=== PATIENT | female | born 1985 | race Caucasian/White ===

== ENCOUNTER 2017-07-12 06:23 | Observation (INO) | payer MEDICAID, SELFPAY ==
--- NOTE | 2017-07-10 17:22 | HP.PCM_ITS ---
History and Physical Date of Admission: 07/11/17 HISTORY OF PRESENT ILLNESS' This is a 31-year-old woman, who presents with a recent flareup of hidradenitis in her right inguinal and medial thigh area. She has noticed some extension onto her right vulval area involving the genitocrural area. There has been increasing pain. She denies any fever. She denies any purulent drainage. She has been on antibiotics intermittently in the past. She is currently on Doxycycline and tolerating them. She has intermittent drainage as well. At the present time, she has increasing pain and swelling. She presents at this time for further evaluation and treatment regarding her right inguinal and medial thigh hidradenitis with extension into her right vulval area involving the mons pubis and genitocrural area. At the time of her excision hidradenitis right axillary area in 06/03, she had wound cultures that showed Proteus mirabilis, Pseudomonas aeroginosa, and Enterococcus faecalis and was treated with Cipro and Augmentin. PAST MEDICAL HISTORY: Diabetes mellitus. Gallstones. Seizures as a child. Bilateral axillary hidradenitis. PAST SURGICAL HISTORY: Cholecystectomy in 2016. Surgical preparation right axilla with excision hidradenitis (128 cm2) - 05/24/16 MEDICATIONS: Metformin, doxycycline, ibuprofen, and aspirin. ALLERGIES: None. SOCIAL HISTORY: Patient does not smoke. The patient does not drink alcohol. FAMILY HISTORY: Positive for skin cancer. Positive for diabetes mellitus. REVIEW OF SYSTEMS: GENERAL: Denies fever, fatigue, and weight loss. EARS, NOSE, AND THROAT: Denies nasal congestion. Denies sore throat. EYES: Denies eye pain. ENDOCRINE: Denies excessive thirst or urination. Has diabetes mellitus. INTEGUMENTARY: Has bilateral axillary hidradenitis. Had excision right axillary hidradenitis in 06/03. Has recent flareup of hidradenitis in her right inguinal area and medial thigh. Has some extension into the right vulval area involving the mons pubis and genitocrural area. MUSCULOSKELETAL: Denies joint pain, joint stiffness, and weakness in muscles and joints, back pain, and arthritis. NEUROLOGIC: Denies headaches. Denies poor balance. CARDIOVASCULAR: Denies chest pain. Denies shortness of breath with exertion. Denies fatigue. PSYCHIATRIC: Denies anxiety. Denies depression. RESPIRATORY: Denies chronic cough. Denies shortness of breath. GASTROINTESTINAL: Denies nausea, vomiting, diarrhea, or constipation. HEMATOLOGIC: Denies abnormal bruising. Denies bleeding. GENITOURINARY: Denies hematuria. Denies urinary frequency. PHYSICAL EXAMINATION: HEENT: Pupils equal, round, and reactive to light. Extraocular muscles intact. Throat is clear. NECK: Supple and nontender. No cervical adenopathy. LUNGS: Clear to auscultation. HEART: Regular rate and rhythm. ABDOMEN: Soft. No masses. Nontender. In the right inguinal area and medial thigh are areas of tenderness and induration and some swelling. Measures 10 cm. There is some extension into the right vulval area involving the mons pubis and genitocrural area. No purulent drainage. No fluctuance. EXTREMITIES: Full range of motion. No axillary adenopathy. No inguinal adenopathy. Axillary adenopathy was difficult to palpate because of the extent of the scarring and chronic infection. She had bilateral axillary hidradenitis. There is tenderness and induration and some swelling. No evidence of cellulitis, fluctuance, or purulent drainage at the present time. The left side is stable with no painful symptomatology. The extent of the scarring measures 8 cm . The right side shows a healed scar from previous excision hidradenitis in 06/03. NEURO: Cranial nerves II through XII grossly intact. ASSESSMENT 1. Right inguinal and medial thigh hidradenitis. 2. Vulval hidradenitis involving the mons pubis and genitocrural area. 3. Family history of skin cancer. 4. Bilateral axillary hidradenitis, s/p excision right axillary hidradenitis in 06/03. PLAN: I recommend excision of her hidradenitis in the right inguinal and medial thigh area, which we could do under general anesthesia with a surgical observation overnight stay. With the extension into the right vulval area involving the mons pubis and genitocrural area, a partial vulvectomy may be done including the deep subcutaneous tissue. We will send tissue to pathology for analysis to rule out carcinoma. We will also send tissue to microbiology for culture. Usually there is staph infection with these chronic infections. A positive culture would necessitate antibiotic therapy. Initially we will leave the wound open and proceed with postoperative wound care with a wound VAC or with daily dressing changes with a silver-type dressing. Post discharge, she will follow up at the Wound Center. If there is a plateau in the healing process, the we could consider delayed closure with skin grafting. The patient was informed of the risks and complications of the procedure including alternatives to surgery. These were discussed with the patient personally. The patient voices understanding and wishes to proceed. Some of the risks and complications were included in a form from the [employer] [place] [employer].
[2017-07-11] VITALS (13 sets, daily range): BP systolic 126–168; BP diastolic 67–112; PULSE 105–135; RESP 14–18; TEMP 36.1–37.2; O2SAT 94–98; BMI 44.9
[2017-07-11 06:59] LABS: Internal QC Validated? YES +Cl - CLEAR BKGD; Pregnancy, Urine Negative Negative
[2017-07-11 07:11] LABS: Bedside Glucose 139 mg/dL (70-110)
[2017-07-11] MEDS: Cefazolin 2 GM in 0.9% Normal Saline 100 ML IV (07:57)
--- NOTE | 2017-07-11 08:00 | HID_PTH ---
PATIENT: YUN COLLADO LOC: MS2 U#:[id number] AGE/SX: 31/F ROOM: [facility] [id number] RE07/12/[address]: Dr. Isaias Cee MD : 1985 BED: 1 DIS: 07/12/2017 SPEC #: [id number] RECD: 07/11/17 10:09 STATUS: YANETH NOEL #: [id number] CHRISTIN: 07/11/17 08:[address]: Isaias Cee DEPT: SURGICAL PATHOLOGY RECD BY: Toby Kamara ENTERED: 07/11/17 10:55 SP TYPE: Hidradenit LAMARHR DR: Dr. Carlos Sanchez, DO Tissues: Inguinal region, NOS Procedures: Surgery Specimen Level III HEADER OPERATION: Surgical preparation right inguinal and medial thigh PRE-OP DIAGNOSIS: Right inguinal and medial thigh hidradenitis; right vulvar hidradenitis involving genitocrural area; family history skin cancer; bilateral axillary hidradenitis S/P excision axillary hidradenitis in 05/2016 TISSUE SUBMITTED: Right inguinal thigh and vulva MICROSCOPIC DIAGNOSIS Skin and soft tissue of right inguinal region and vulva, excision: Consistent with hidradenitis. CARLOS:gwendolyn 07/12/17 MICROSCOPIC DESCRIPTION Slides are reviewed. GROSS DESCRIPTION Received in fixative is one container labeled with the patient's name and designated Right inguinal thigh/ vulva. The specimen consists of an irregular piece of skin with underlying tissue measuring 21 x 14 x 3 cm. No obvious skin lesion is identified. Client Success Director sections are submitted in two cassettes. / SJ:gwendolyn 07/11/17 TC:3 CPT: 66516
[2017-07-11] MEDS: Bupivacaine 0.25% 30 ML Vial (09:04)
--- NOTE | 2017-07-11 09:12 | OP.PN_ITS ---
Immediate Post-Op Note Date of Procedure: 07/11/17 Primary Surgeon/Physician: Isaias Cee long chain beamer: None Pre-Operative Diagnosis: 1. Right inguinal and medial thigh hidradenitis. 2. Right vulval hidradenitis involving the mons pubis and genitocrural area. 3. Family history of skin cancer. 4. Bilateral axillary hidradenitis, s/p excision right axillary hidradenitis in 06/03. Post-Operative Diagnosis: Same. Surgery/Procedure Performed:: 1. Surgical preparation right inguinal and medial thigh area with excision hidradenitis (437 cm2). 2. Excision hidradenitis right vulval area with partial vulvectomy including deep subcutaneous tissue (mons pubis and genitocrural area up to labia). Description of Surgical Findings:: This is a 31-year-old woman, who presents with a recent flareup of hidradenitis in her right inguinal and medial thigh area. She has noticed some extension onto her right vulval area involving the genitocrural area. There has been increasing pain. She denies any fever. She denies any purulent drainage. She has been on antibiotics intermittently in the past. She is currently on Doxycycline and tolerating them. She has intermittent drainage as well. At the present time, she has increasing pain and swelling. She presents at this time for further evaluation and treatment regarding her right inguinal and medial thigh hidradenitis with extension into her right vulval area involving the genitocrural area. At the time of her excision hidradenitis right axillary area in 06/03, she had wound cultures that showed Proteus mirabilis, Pseudomonas aeroginosa, and Enterococcus faecalis and was treated with Cipro and Augmentin. Today the patient underwent surgical preparation right inguinal and medial thigh area with excision hidradenitis (437 cm2) and excision hidradenitis right vulval area with partial vulvectomy including deep subcutaneous tissue (mons pubis and genitocrural area up to labia). Size of defect right inguinal, medial thigh, and vulval area - 19 x 23 x 3 cm. Estimated Blood Loss: 100 ml. Specimen's removed: Right inguinal, medial thigh, and vulval hidradenitis to Pathology and Microbiology. Drains: None. Type of Anesthesia:: General - Admit VTE Documentation VTE Present on Admission: No VTE Mechan Device Prophylaxis: SCD's VTE Pharm Prophylaxis ordered?: No
[2017-07-11 09:30] LABS: Bedside Glucose 168 mg/dL (70-110)
[2017-07-11] MEDS: Lactated Ringers 1,000 ML 60 ML IV ×2 (09:56→10:34)
[2017-07-11] MEDS: oxyCODONE 5 MG Tablet 10 MG PO (14:22)
[2017-07-11] MEDS: Docusate Sodium 100 MG Capsule PO ×2 (14:22→22:18)
--- NOTE | 2017-07-11 16:53 | PCM.OPRPT ---
Report of Operation Date of Procedure: 07/11/17 Pre-Operative Diagnosis: 1. Right inguinal and medial thigh hidradenitis. 2. Right vulval hidradenitis involving the mons pubis and genitocrural area. 3. Family history of skin cancer. 4. Bilateral axillary hidradenitis, s/p excision right axillary hidradenitis in 06/03. Post-Operative Diagnosis: Same. Surgery/Procedure Performed:: 1. Surgical preparation right inguinal and medial thigh area with excision hidradenitis (437 cm2). 2. Excision hidradenitis right vulval area with partial vulvectomy including deep subcutaneous tissue (mons pubis and genitocrural area up to labia). Description of Surgical Findings:: his is a 31-year-old woman, who presents with a recent flareup of hidradenitis in her right inguinal and medial thigh area. She has noticed some extension onto her right vulval area involving the genitocrural area. There has been increasing pain. She denies any fever. She denies any purulent drainage. She has been on antibiotics intermittently in the past. She is currently on Doxycycline and tolerating them. She has intermittent drainage as well. At the present time, she has increasing pain and swelling. She presents at this time for further evaluation and treatment regarding her right inguinal and medial thigh hidradenitis with extension into her right vulval area involving the genitocrural area. At the time of her excision hidradenitis right axillary area in 06/03, she had wound cultures that showed Proteus mirabilis, Pseudomonas aeroginosa, and Enterococcus faecalis and was treated with Cipro and Augmentin. The patient was informed of the risks and complications of the procedure including alternatives to surgery. These were discussed with the patient personally. The patient voices understanding and wishes to proceed. Some of the risks and complications were included in a form from the [place] [employer]. Size of defect right inguinal, medial thigh, and vulval area - 19 x 23 x 3 cm. manager electrical: None Type of Anesthesia:: General Specimen's removed: Right inguinal, medial thigh, and vulval hidradenitis to Pathology and Microbiology. Drains: None. Estimated Blood Loss (mL): 100 ml. Description of Procedure: Patient was taken to OR in supine position and was placed under general anesthesia. Her inguinal, medial thigh and vulval areas were prepped and draped in the usual fashion. SCD's were placed for DVT prophylaxis. Perioperative antibiotics were given intravenously. A ernst catheter was then placed. The area of hidradenitis was marked out in the right inguinal and medial thigh area with extension into the vulval area including the mons pubis and the genitocrural area up to the labia. Incision was made with a scalpel down through the subcutaneous tissue until the underlying muscular fascia was seen. There was fat necrosis present and indurated scarring indicative of chronic infection. No acute pus was noted. The mons pubis area were involved with fat necrosis and indurated scarring. The right inguinal and medial thigh hidradenitis areas were excised. The right vulval hidradenitis was also excised from the mons pubis and the genitocrural area up to the labia with a partial vulvectomy including deep subcutaneous tissue. Hemostasis was obtained with electrocautery. The wound was irrigated with saline. Both excisions were combined into one larger wound. The dimensions of the wound after excision was 19 x 23 x 3 cm or 437 cm2. Tissue was sent to Pathology for analysis to rule out carcinoma. Tissue was also sent to Microbiology for culture. A positive culture will necessitate antibiotic therapy. The wound was then packed with Mepitel nonadherent dressing followed by Kerlix gauze with Betadine followed by dry Kerlix gauze and ABD pads. Dressing was secured with tape and meshed panties. Patient tolerated the procedure well and was sent to PACU in satisfactory condition. She will be sent upstairs for surgical observation overnight stay in the hospital. When the VAC is approved and when she is tolerating po analgesia, then she will be discharged home. She will followup at the Wound Center. She will be sent home on antibiotics and pain medication. She will also be sent home with the ernst catheter for a couple of weeks. Grafts/Implants Used: None. - Complications None. - Admit VTE Documentation VTE Present on Admission: No VTE Mechan Device Prophylaxis: SCD's VTE Pharm Prophylaxis ordered?: No Code Visit Surgery Charges CPT - 73722 ICD-10 - L73.2, S31.103A, S31.40xA, Z80.8 23056 L73.2, S31.40xA, S31.103A, Z80.8
[2017-07-11] MEDS: Cefazolin 1 GM/50 ML BAG IV (17:23)
[2017-07-12] MEDS: Cefazolin 1 GM/50 ML BAG IV ×2 (00:24→08:38)
[2017-07-12 02:44] VITALS: BP 112/56; PULSE 85; RESP 16; TEMP 37; O2SAT 99
[2017-07-12] MEDS: Lactated Ringers 1,000 ML 60 ML IV (02:59)
[2017-07-12 06:33] LABS: Hematocrit 36.7 % (37-47); Hemoglobin 11.8 g/dl (12.0-15.0); Mean Corp Hgb Conc 32.2 g/gl (32-36); Mean Corpuscular Hgb 29.6 pg (27.0-32.0); Mean Platelet Vol. 10.3 fl (6.2-12.0); Platelet Count 343 K/mm3 (150-450); RBC Distribution Width CV 13.1 % (11.6-14.6); RBC Distribution Width SD 43.2 fl (35.1-43.9); Red Blood Count 3.99 M/mm3 (4.2-5.4); Scan Indicated on CBC? Y/N NO; White Blood Count 10.9 K/mm3 (4.4-11.0)
[2017-07-12 06:56] LABS: Anion Gap 6 (5-15); BUN 11 mg/dL (7-18); BUN/Creat Ratio 15.9 RATIO (10-20); Calcium,Total 8.5 mg/dL (8.5-10.1); Chloride 108 mmol/L (98-107); Creatinine, Serum 0.69 mg/dL (0.55-1.02); EST Glomerular Filtration Rate 106 mL/min (>60); Est Glom Filt Rate - Afr Amer 128 mL/min (>60); Estimated Creatinine Clearance 89.96 ml/min; Glucose 136 mg/dL (74-106); Prealbumin 26.4 mg/dL (20.0-40.0); Sodium Level 140 mmol/L (136-145)
[2017-07-12] MEDS: HYDROmorphone 1 MG/ML Syringe IV (09:50)
[2017-07-12] MEDS: 0.9% NaCl Peripheral Flush Adult/Peds IV (09:50)
[2017-07-12] MEDS: Docusate Sodium 100 MG Capsule PO (09:51)
--- NOTE | 2017-07-12 11:21 | CASEMGMT ---
Clinical information and order faxed to [facility] re: home health setup for skilled superintendent distribution vac changes. CM will continue to follow for home health setup.
--- NOTE | 2017-07-12 11:47 | NURSING ---
Wound photo: right groin
--- NOTE | 2017-07-12 14:26 | CASEMGMT ---
Addendum entered by Gaby Little 07/13/17 15:17: New order faxed to [facility]. [facility] will begin start of care on July 14. Original Note: [facility] has accepted the patient and will provide start of care July 14 - long term for wound vac changes. Continuing schedule will be M/W/. All paperwork and order sent to [facility].
--- NOTE | 2017-07-12 14:57 | NURSING ---
Took home VAC into room and reviewed alarms, etc. with step mom in case patient is discharged later today. Dr Cee to see patient. wound VAC dressing remains intact with good seal at 150mmHg low continuous suction. step mom denies questions. home health has been arranged with Liliana Griffin CM and dressing change is planned for Monday07/14/17.
--- NOTE | 2017-07-12 15:06 | PN.SURG_ITS ---
Subjective: Postop #1 Patient is resting comfortably. VAC applied today. Tolerated reasonably well. - Physical Exam General: Alert, Oriented x3 HEENT: PERRLA, EOMI Neck: Supple Lungs: Clear to auscultation Cardiovascular: Regular rate, Regular Rhythm Abdomen: Soft, Non-Distended Skin: Ulcer/ Wound - right inguinal, medial thigh, and vulval areas are clean with no bleeding. VAC applied today. Tolerated reasonably well. Neurological: Cranial nerves II-XII grossly intact Psych/Mental Status: Normal Affect, Appropriate Vital Signs Temp Pulse Resp BP Pulse Ox 98.6 F 85 16 112/56 L 99 07/12/17 02:44 07/12/17 02:44 07/12/17 02:44 07/12/17 02:44 07/12/17 02:44 Oxygen Delivery Method Room Air Weight: 237 lb 7.005 oz Body Mass Index (BMI) 44.9 Finger Stick Blood Glucose 168 Intake and Output for Last 24 Hours 07/10/17 07/11/17 07/12/17 23:59 23:59 23:59 Intake Total 3670 / 3670 3261 / 3261 Output Total 1225 / 1225 1850 / 1850 Balance 2445 / 2445 1411 / 1411 Microbiology Past 72 Hours 07/11/17 Unknown Gram Stain - Final Biopsy - Other Wound Culture - Preliminary No growth-Final to follow Laboratory Tests Past 24 Hrs 07/12/17 07/12/17 06:10 06:10 WBC 10.9 RBC 3.99 L Hgb 11.8 L Hct 36.7 L MCV 92.0 MCH 29.6 MCHC 32.2 RDW 13.1 RDW Differential 43.2 Plt Count 343 MPV 10.3 Sodium 140 Potassium 4.0 Chloride 108 H Carbon Dioxide 26.0 Anion Gap 6 BUN 11 Creatinine 0.69 Estim Creat Clear Calc 89.96 Est GFR (MDRD) Af Amer 128 Est GFR (MDRD) Non-Af 106 BUN/Creatinine Ratio 15.9 Glucose 136 H Calcium 8.5 Prealbumin 26.4 Medical Necessity - Tobacco Use Smoking Status: Never smoker Assessment/Plan 1. Right inguinal and medial thigh hidradenitis. 2. Right vulval hidradenitis involving the mons pubis and genitocrural area. 3. Family history of skin cancer. 4. Bilateral axillary hidradenitis, s/p excision right axillary hidradenitis in 06/03. 5. s/p surgical preparation right inguinal and medial thigh area with excision hidradenitis (437 cm2) and excision hidradenitis right vulval area with partial vulvectomy including deep subcutaneous tissue (mons pubis and genitocrural area up to labia). She tolerated the VAC changed reasonably well. VAC has been approved. Home Health to assist with VAC changes three times per week at 150 mmHg continuous suction. Prealbumin was 26.4. Encourage nutritional supplementation with protein to help the healing process. Operative cultures are pending. Will send home on Doxycycline. Tolerating po analgesia. Discharge home today. Followup Wound Center on 07/24/17. Will remove the ernst catheter at the Wound Center. Wrote script for Doxycycline for 14 days (28 tabs) and 2 refills. Wrote scripts for Percocet for pain (60 tabs) and for Valium for spasm (30 tabs) . Wrote scripts for Phenergan for nausea (30 tabs) and a refill and for Colace for constipation (60 tabs).
--- NOTE | 2017-07-12 15:11 | PCM.DC ---
You will use the following diet at home:: No restrictions, Other - encourage nutritional supplementation with protein to help the healing process. Discharge Activity: May not drive while taking narcotic pain medications., May Shower - on the days the vac is changed. May shower in (days): 2 - may shower on the days the vac is changed. May resume sexual activity in: No Restrictions Weight Bearing Status: Weight bearing as tolerated Call your doctor if your incision/area has: Continuous Slow Oozing, Sudden Increased Bleeding, Increased Pain/ Swelling, Increased Redness, Foul Smelling Discharge, Swelling at the incision site Call your doctor if you observe: Fever of 101 or Higher, Coldness, Increased Pain, Shortness of breath, Chest pain, Calf discomfort, Uncontrolled pain Suture Line Care: - - vac changes three times per week at 150 mmHg continuous suction. Change Dressing in (Days):: 2 - vac changes three times per week. Cleanse incision/area with: Soap & Water - may cleanse the wound at the time of the vac change., - - arlen shower on the days the vac is changed. Catheter: Hood to leg bag - will remove at the wound center. Allergies/Adverse Reactions: Allergies No Known Allergies Allergy (Verified 07/04/17 09:05) Medications to take at Discharge Metformin HCl [Glucophage] 500 mg PO DAILY 10/10/15 Norgestimate-Ethinyl Estradiol [Tri-Linyah Tablet] 1 tab PO DAILY 10/10/15 norethindrone acetate-ethinyl estradiol 1.5 mg-30 mcg tablet 1 tab PO QDAY #21 tab 07/11/17 Diazepam [Valium] 5 mg PO 4X/DAY PRN PRN #30 tab 07/12/17 Docusate Sodium [Colace] 100 mg PO BID #60 cap 07/12/17 Doxycycline 100 mg PO BID #28 cap 07/12/17 Oxycodone HCl/Acetaminophen [Percocet 5/325] 1 - 2 tab PO 4X/DAY PRN PRN 7 Days #60 tab 07/12/17 proMETHazine tablet [Phenergan tablet] 25 mg PO 4X/DAY PRN PRN #30 tab 07/12/17 The following prescriptions were given: Diazepam [Valium] 5 mg PO 4X/DAY PRN PRN #30 tab PRN Reason: Spasms Oxycodone HCl/Acetaminophen [Percocet 5/325] 1 - 2 tab PO 4X/DAY PRN PRN 7 Days #60 tab PRN Reason: Pain proMETHazine tablet [Phenergan tablet] 25 mg PO 4X/DAY PRN PRN #30 tab PRN Reason: NAUSEA/VOMITING Docusate Sodium [Colace] 100 mg PO BID #60 cap Doxycycline 100 mg PO BID #28 cap Primary Care Physician: Carlos Sanchez DO [Primary Care Provider] - Please Follow Up With: Isaias Cee MD - call [phone] if any questions. When: Monday07/24/17 at [facility] at 1100am. Proposed Discharge Date: 07/12/17
[2017-07-12 15:15] VITALS: BP 126/67; PULSE 91; RESP 18; TEMP 36.9; O2SAT 98
--- NOTE | 2017-07-12 15:16 | DCINST_ITS ---
You will use the following diet at home:: No restrictions, Other - encourage nutritional supplementation with protein to help the healing process. Discharge Activity: May not drive while taking narcotic pain medications., May Shower - on the days the vac is changed. May shower in (days): 2 - may shower on the days the vac is changed. May resume sexual activity in: No Restrictions Weight Bearing Status: Weight bearing as tolerated Call your doctor if your incision/area has: Continuous Slow Oozing, Sudden Increased Bleeding, Increased Pain/ Swelling, Increased Redness, Foul Smelling Discharge, Swelling at the incision site Call your doctor if you observe: Fever of 101 or Higher, Coldness, Increased Pain, Shortness of breath, Chest pain, Calf discomfort, Uncontrolled pain Suture Line Care: - - vac changes three times per week at 150 mmHg continuous suction. Change Dressing in (Days):: 2 - vac changes three times per week. Cleanse incision/area with: Soap & Water - may cleanse the wound at the time of the vac change., - - arlen shower on the days the vac is changed. Catheter: Hood to leg bag - will remove at the wound center. Allergies/Adverse Reactions: Allergies No Known Allergies Allergy (Verified 07/04/17 09:05) Medications to take at Discharge Metformin HCl [Glucophage] 500 mg PO DAILY 10/10/15 Norgestimate-Ethinyl Estradiol [Tri-Linyah Tablet] 1 tab PO DAILY 10/10/15 norethindrone acetate-ethinyl estradiol 1.5 mg-30 mcg tablet 1 tab PO QDAY #21 tab 07/11/17 Diazepam [Valium] 5 mg PO 4X/DAY PRN PRN #30 tab 07/12/17 Docusate Sodium [Colace] 100 mg PO BID #60 cap 07/12/17 Doxycycline 100 mg PO BID #28 cap 07/12/17 Oxycodone HCl/Acetaminophen [Percocet 5/325] 1 - 2 tab PO 4X/DAY PRN PRN 7 Days #60 tab 07/12/17 proMETHazine tablet [Phenergan tablet] 25 mg PO 4X/DAY PRN PRN #30 tab 07/12/17 The following prescriptions were given: Diazepam [Valium] 5 mg PO 4X/DAY PRN PRN #30 tab PRN Reason: Spasms Oxycodone HCl/Acetaminophen [Percocet 5/325] 1 - 2 tab PO 4X/DAY PRN PRN 7 Days #60 tab PRN Reason: Pain proMETHazine tablet [Phenergan tablet] 25 mg PO 4X/DAY PRN PRN #30 tab PRN Reason: NAUSEA/VOMITING Docusate Sodium [Colace] 100 mg PO BID #60 cap Doxycycline 100 mg PO BID #28 cap Primary Care Physician: Carlos Sanchez DO [Primary Care Provider] - Please Follow Up With: Isaias Cee MD - call [phone] if any questions. When: Monday07/24/17 at [facility] at 1100am. Proposed Discharge Date: 07/12/17
== END 2017-07-12 16:20 | disposition home health service (06) ==
LOC: SDC 10:12
PROVIDERS: Admitting Provider Surgery; Family Provider Family Medicine; PCP Family Medicine; Visit Provider Surgery
PROC: (CPT 11462; principal; 2017-07-11 07:45)
DX: L73.2 Hidradenitis suppurativa (principal); Z80.8 Family history of malignant neoplasm of other organs or systems; E11.9 Type 2 diabetes mellitus without complications; Z79.899 Other long term (current) drug therapy; Z79.82 Long term (current) use of aspirin; Z79.84 Long term (current) use of oral hypoglycemic drugs; F84.0 Autistic disorder; Z48.01 Encounter for change or removal of surgical wound dressing; G40.909 Epilepsy, unspecified, not intractable, without status epilepticus
CPT/HCPCS: 11462; 11470; 36415; 80048; 81025; 82962; 84134; 85027; 87070; 87075; 87077; 87102; 87205; 87206; 88304; 96365; 96366; 96375; 99218; 99283; J7120; A4216; G0378; G0379; J2405

== ENCOUNTER 2017-07-12 23:49 | Emergency (ER) | payer MEDICAID, SELFPAY ==
[2017-07-12 23:50] VITALS: BP 139/92; PULSE 118; RESP 18; TEMP 37; O2SAT 96; BMI 46.3
--- NOTE | 2017-07-13 01:00 | ED.VISSUMM ---
- ER Visit Summary Date of Service: 07/13/17 Chief Complaint: Wound VAC will not seal History of Present Illness: The patient is a 31 F who was discharged from this facility today. She had a wound VAC placed by Dr. Cee in the right groin area secondary to a surgical excision of hidradenitis. She went home and home health was supposed to assist her with this but home health was not able to come until Monday. She started having her menstrual cycle today and some blood got into the dressing of the wound VAC and now it will not seal. They spoke with Dr. Cee over the phone who directed her to come here to have the wound VAC taken off. Patient denies any pain. Physical Examination: Vitals are reviewed. Right groin exam reveals a wound VAC covering the right groin into the right labial area. There is no surrounding cellulitis. No tenderness to palpation. Test Results: None indicated Emergency Department Course and Treatment: I spoke with Dr. Cee over the phone. He would like the wound VAC to be taken off and wet-to-dry dressings be placed. He will see the patient in the office tomorrow for dressing change and possible reapplication of the wound VAC. I relayed this to the family and they are okay with this plan. The was taken off and wet-to-dry is placed without any difficulties. They will follow-up tomorrow Treatment Plan: [] Disposition: Discharge Impression: Right groin wound check, dressing change This note was generated with [employer] dictation software. It may contain incorrect words, spelling, and punctuation that were not noted in review of the chart prior to signing ED Disposition - Plan for ED Patient: Chief Complaint: Wound Referrals: Carlos Sanchez DO [Primary Care Provider] -
--- NOTE | 2017-07-13 01:03 | ED.DEP ---
ED Disposition - Plan for ED Patient: Disposition: Home or Assisted Living Chief Complaint: Wound Instructions: Wound Care Referrals: Carlos Sanchez DO [Primary Care Provider] -
[2017-07-13 01:12] VITALS: BP 148/97; PULSE 107; RESP 16; O2SAT 95
== END 2017-07-13 01:20 | disposition home or self-care (01) ==
PROVIDERS: Emergency Provider Emergency Medicine; Family Provider Family Medicine; PCP Family Medicine
DX: Z48.01 Encounter for change or removal of surgical wound dressing (principal); L73.2 Hidradenitis suppurativa; E11.9 Type 2 diabetes mellitus without complications; G40.909 Epilepsy, unspecified, not intractable, without status epilepticus; Z79.84 Long term (current) use of oral hypoglycemic drugs; Z79.899 Other long term (current) drug therapy
CPT/HCPCS: 99283

== ENCOUNTER 2017-08-07 09:00 | Outpatient (RCR) | payer MEDICAID, SELFPAY ==
[2017-07-24 11:30] VITALS: BP 137/100; PULSE 103; RESP 22; TEMP 36.6; BMI 105.5
--- NOTE | 2017-07-24 20:10 | PCM.WC.PN ---
Type of Wound Date of Service: 07/24/17 Chief Complaint: Nonhealing hidradenitis ulcer right axilla. History of Wound: Surgery 05/24/16 - Surgical preparation right axilla with excision hidradenitis (128 cm2). Wound care - Silver. Operative culture - negative. Was treated with Doxycycline perioperatively. Went to ED on 06/05/16 because of increased drainage and odor. A wound culture showed Proteus mirabilis, Psuedomonas aeroginosa, and Enterococcus faecalis. She is on Cipro and Augmentin. Prealbumin from 05/25/16 was 21.3. She takes nutritional supplementation with protein to help the healing process. She denies any fever. Her appetite is good. - Physical Exam Vital Signs Temp Pulse Resp BP 97.9 F 103 H 22 H 137/100 H 07/24/17 11:30 07/24/17 11:30 07/24/17 11:30 07/24/17 11:30 Wound Measurements and Assessment WC - Nurse 1 - General Ulcer Measurement Start: 07/24/17 11:09 Freq: Status: Active Protocol: Activity Type Activity Date Activity User E-Sign Co-Sign Detail Recorded Client Recorded Date Recorded By Document 07/24/17 11:30 DL [id number] 07/24/17 11:56 DL 07/24/17 11:30 Wound Center Nurse 1 [Ulcer Assessment] #2 R Inquinal/Medial Thigh -Current Size (cm) - Length 19.1 -Current Size (cm) - Width 10 -Current Size (cm) - Depth 7 -Total Square Cm 191.0 -Photo Taken Yes -Classification - Thickness Full Thickness without Exposed Support Structure -Exudate Amt Large (67-100%) -Exudate Type Serosanguineous -Wound Margin Distinct, Outline Attached -Granulation Amt Large (67-100%) -Granulation Quality Red -Necrosis Amt Medium (34-66%) -Necrotic Tissue Type Adherent Slough -Structure Exposed N/A -Texture (Amanda-wound Skin Appearance) No Abnormality -Moisture (Amanda-wound Skin Appearance No Abnormality ) -Color (Amanda-wound Skin Appearance) No Abnormality -Temperature (Amanda-wound Skin No Abnormality Appearance) (Pt Warm) -Ulcer Cleansing Wound Cleanser -Foul Odor after Cleansing No -Anesthetic Used 4% Lidocaine Solution Debridement Note Wound debrided: #2 Right inguinal and vulval area. Laterality: Right Wound Grade/Stage: 2. No debridement was completed today - Patient had recent surgery on 07/11/17. Assessment/Plan Assessment: 1. Right axillary hidradenitis. 2. Family history of skin cancer. 3. Nonhealing hidradenitis ulcer right axillary area. 4. s/p surgical preparation right axilla with excision hidradenitis (128 cm2). Plan: Stop the VAC and continue Silver dressing changes daily. Continue Cipro and Augmentin from ED wound culture on 06/05/16 that showed Proteus mirabilis, Pseudomonas aeroginosa, and Enterococcus faecalis. Prealbumin from 05/25/16 was 21.3. Continue nutritional supplementation with protein to help the healing process. Has enough Percocet and Valium for now. Followup 2 weeks.
[2017-08-07 09:36] VITALS: BP 150/82; PULSE 100; RESP 18; TEMP 35.2; BMI 105.5
--- NOTE | 2017-08-07 18:17 | PCM.WC.PN ---
Type of Wound Date of Service: 08/07/17 Chief Complaint: Nonhealing hidradenitis ulcer right axilla. History of Wound: Surgery 05/24/16 - Surgical preparation right axilla with excision hidradenitis (128 cm2). Wound care - Silver. Operative culture - negative. Was treated with Doxycycline perioperatively. Went to ED on 06/05/16 because of increased drainage and odor. A wound culture showed Proteus mirabilis, Psuedomonas aeroginosa, and Enterococcus faecalis. She is on Cipro and Augmentin. Prealbumin from 05/25/16 was 21.3. She takes nutritional supplementation with protein to help the healing process. She denies any fever. Her appetite is good. - Physical Exam Vital Signs Temp Pulse Resp BP 95.3 F L 100 18 150/82 H 08/07/17 09:36 08/07/17 09:36 08/07/17 09:36 08/07/17 09:36 Wound Measurements and Assessment WC - Nurse 1 - General Ulcer Measurement Start: 07/24/17 11:09 Freq: Status: Active Protocol: Activity Type Activity Date Activity User E-Sign Co-Sign Detail Recorded Client Recorded Date Recorded By Document 08/07/17 09:36 TM [id number] 08/07/17 09:38 TM 08/07/17 09:36 Wound Center Nurse 1 [Ulcer Assessment] #2 R Inquinal/Medial Thigh -Combined with other wound No -Current Size (cm) - Length 16.9 -Current Size (cm) - Width 17.0 -Current Size (cm) - Depth 6.5 -Total Square Cm 287.30 -Photo Taken No -Epithelialization Small 1-33% -Tunneling No -Undermining/Tunneling No -Circular Undermining No -Classification - Thickness Full Thickness without Exposed Support Structure -Exudate Amt Large (67-100%) -Exudate Type Serosanguineous -Wound Margin Distinct, Outline Attached -Granulation Amt Large (67-100%) -Granulation Quality Red -Slough/Fibrin Yes -Necrosis Amt Small (1-33%) -Necrotic Tissue Type Adherent Slough -Structure Exposed Fascia Fat Layer Exposed -Texture (Amanda-wound Skin Appearance) Localized Edema -Moisture (Amanda-wound Skin Appearance No Abnormality ) -Color (Amanda-wound Skin Appearance) Erythema -Temperature (Amanda-wound Skin No Abnormality Appearance) (Pt Warm) -Ulcer Cleansing Rinsed/ Irrigated with Saline -Foul Odor after Cleansing No -Anesthetic Used 4% Lidocaine Solution [Edema Assessment] -Lower Limb Edema Present No - Nurse 2 - General Ulcer CM Notes Start: 07/24/17 11:09 Freq: Status: Active Protocol: Activity Type Activity Date Activity User E-Sign Co-Sign Detail Recorded Client Recorded Date Recorded By Document 08/07/17 09:57 [id number] 08/07/17 10:02 08/07/17 09:57 Wound Center Nurse 2 [Procedure/Treatment] #2 R Inquinal/Medial Thigh -Time 09:59 -Correct Patient Yes -Correct Side, Site, Position Yes -Correct Procedure Yes -Procedure Performed Yes -Type of Procedure Debridement -Clinical Debridement Subcutaneous -Post Debridement Size (cm) - Length 17.0 -Post Debridement Size (cm) - Width 8.0 -Post Debridement Size (cm) - Depth 3.2 -Total Square Cm 136.00 -Wound/Ulcer Outcome Not Healed -Ulcer Cleansing Rinsed/ Irrigated with Saline -Foul Odor after Cleansing No -Bioengineered Tissue No -Bleeding Controlled with Pressure -Treatment Response Procedure Tolerated Well [See Physician Procedure note for Specifics] Pain Scale: 0-10 Numeric [Pain] -Is Patient Pain Free? Yes Debridement Note Post-Debridement Measurements/Treatment KEVIN - Nurse 2 - General Ulcer CM Notes Start: 07/24/17 11:09 Freq: Status: Active Protocol: Activity Type Activity Date Activity User E-Sign Co-Sign Detail Recorded Client Recorded Date Recorded By Document 08/07/17 09:57 [id number] 08/07/17 10:02 08/07/17 09:57 Wound Center Nurse 2 #2 R Inquinal/Medial Thigh -Time 09:59 -Correct Patient Yes -Correct Side, Site, Position Yes -Correct Procedure Yes -Procedure Performed Yes -Type of Procedure Debridement -Clinical Debridement Subcutaneous -Post Debridement Size (cm) - Length 17.0 -Post Debridement Size (cm) - Width 8.0 -Post Debridement Size (cm) - Depth 3.2 -Total Square Cm 136.00 -Wound/Ulcer Outcome Not Healed -Ulcer Cleansing Rinsed/ Irrigated with Saline -Foul Odor after Cleansing No -Bioengineered Tissue No -Bleeding Controlled with Pressure -Treatment Response Procedure Tolerated Well Pain Scale: 0-10 Numeric Is Patient Pain Free? Yes Wound debrided: #2 Right inguinal and vulval area. Laterality: Right Wound Grade/Stage: 2. Type of Debridement: Excisional debridement Anesthesia Used: 4% Lidocaine Solution Depth: Down to and including healthy tissue, in the subcutaneous layer Percentage of wound debrided: 100 Instrument Used: 7mm curette Tissue Removed: subcutaneous tissue. Severity: Fat Layer Exposed Amount of bleeding with debridement: Mild Bleeding Controlled with: Pressure Patient tolerated procedure well Assessment/Plan Assessment: 1. Right axillary hidradenitis. 2. Family history of skin cancer. 3. Nonhealing hidradenitis ulcer right axillary area. 4. s/p surgical preparation right axilla with excision hidradenitis (128 cm2). Plan: Stop the VAC and continue Silver dressing changes daily. Continue Cipro and Augmentin from ED wound culture on 06/05/16 that showed Proteus mirabilis, Pseudomonas aeroginosa, and Enterococcus faecalis. Prealbumin from 05/25/16 was 21.3. Continue nutritional supplementation with protein to help the healing process. Has enough Percocet and Valium for now. Followup 2 weeks.
== END 2017-08-14 23:59 ==
LOC: WC 09:00
PROVIDERS: Family Provider Family Medicine; PCP Family Medicine; Visit Provider Surgery
DX: L73.2 Hidradenitis suppurativa (principal); L98.492 Non-pressure chronic ulcer of skin of other sites with fat layer exposed
CPT/HCPCS: 11042; 11045; 99213; G0463

== ENCOUNTER 2017-09-12 14:45 | Outpatient (RCR) | payer MEDICAID, SELFPAY ==
[2017-08-15 00:12] VITALS: PULSE 100; RESP 18; TEMP 35.2
[2017-08-28 10:24] VITALS: BP 138/72; PULSE 106; RESP 22; TEMP 35.8
--- NOTE | 2017-08-28 23:43 | PCM.WC.PN ---
Type of Wound Date of Service: 08/28/17 Chief Complaint: Nonhealing hidradenitis ulcer right inguinal and vulval area. History of Wound: Surgery 07/11/17 1. Surgical preparation right inguinal and medial thigh area with excision hidradenitis (437 cm2). 2. Excision hidradenitis right vulval area with partial vulvectomy including deep subcutaneous tissue (mons pubis and genitocrural area up to labia). Wound care - Silver. Operative culture - Anaerobic cocci and Propionibacterium granulosum. She initially treated with Doxycycline and Augmentin was added. She has finished them without problem. Encourage nutritional supplementation with protein to help the healing process. Today she denies any fever. Her appetite is good. Progress of Wound: Improved. - Physical Exam Vital Signs Temp Pulse Resp BP 96.4 F L 106 H 22 H 138/72 H 08/28/17 10:24 08/28/17 10:24 08/28/17 10:24 08/28/17 10:24 Wound Measurements and Assessment WC - Nurse 1 - General Ulcer Measurement Start: 08/28/17 10:23 Freq: Status: Active Protocol: Activity Type Activity Date Activity User E-Sign Co-Sign Detail Recorded Client Recorded Date Recorded By Document 08/28/17 10:24 DL [id number] 08/28/17 10:36 DL 08/28/17 10:24 Wound Center Nurse 1 [Ulcer Assessment] #2 R Inquinal/Medial Thigh -Current Size (cm) - Length 13.5 -Current Size (cm) - Width 3.7 -Current Size (cm) - Depth 0.2 -Total Square Cm 49.95 -Photo Taken Yes -Exudate Amt Medium (34-66%) -Exudate Type Serosanguineous -Wound Margin Distinct, Outline Attached -Granulation Amt Large (67-100%) -Granulation Quality Red -Necrosis Amt Small (1-33%) -Necrotic Tissue Type Adherent Slough -Structure Exposed N/A -Texture (Amanda-wound Skin Appearance) Scarring -Moisture (Amanda-wound Skin Appearance No Abnormality ) -Color (Amanda-wound Skin Appearance) No Abnormality -Temperature (Amanda-wound Skin No Abnormality Appearance) (Pt Warm) -Ulcer Cleansing Wound Cleanser -Foul Odor after Cleansing No -Anesthetic Used 4% Lidocaine Solution WC - Nurse 2 - General Ulcer CM Notes Start: 08/28/17 10:23 Freq: Status: Active Protocol: Activity Type Activity Date Activity User E-Sign Co-Sign Detail Recorded Client Recorded Date Recorded By Document 08/28/17 10:52 [email or web address] [id number] 08/28/17 10:53 08/28/17 10:52 Wound Center Nurse 2 [Procedure/Treatment] -Time 10:52 -Correct Patient Yes -Correct Side, Site, Position Yes -Correct Procedure Yes -Procedure Performed Yes -Type of Procedure Debridement -Clinical Debridement Subcutaneous -Post Debridement Size (cm) - Length 13.5 -Post Debridement Size (cm) - Width 3.7 -Post Debridement Size (cm) - Depth 0.2 -Total Square Cm 49.95 -Wound/Ulcer Outcome Not Healed -Ulcer Cleansing Rinsed/ Irrigated with Saline -Foul Odor after Cleansing No -Bioengineered Tissue No -Bleeding Controlled with Pressure -Treatment Response Procedure Tolerated Well [See Physician Procedure note for Specifics] Pain Scale: 0-10 Numeric [Pain] -Is Patient Pain Free? Yes Debridement Note Post-Debridement Measurements/Treatment - Nurse 2 - General Ulcer CM Notes Start: 08/28/17 10:23 Freq: Status: Active Protocol: Activity Type Activity Date Activity User E-Sign Co-Sign Detail Recorded Client Recorded Date Recorded By Document 08/28/17 10:52 [email or web address] [id number] 08/28/17 10:53 08/28/17 10:52 Wound Center Nurse 2 #2 R Inquinal/Medial Thigh -Time 10:52 -Correct Patient Yes -Correct Side, Site, Position Yes -Correct Procedure Yes -Procedure Performed Yes -Type of Procedure Debridement -Clinical Debridement Subcutaneous -Post Debridement Size (cm) - Length 13.5 -Post Debridement Size (cm) - Width 3.7 -Post Debridement Size (cm) - Depth 0.2 -Total Square Cm 49.95 -Wound/Ulcer Outcome Not Healed -Ulcer Cleansing Rinsed/ Irrigated with Saline -Foul Odor after Cleansing No -Bioengineered Tissue No -Bleeding Controlled with Pressure -Treatment Response Procedure Tolerated Well Pain Scale: 0-10 Numeric Is Patient Pain Free? Yes Wound debrided: #2 Right inguinal and vulval area. Laterality: Right Wound Grade/Stage: 2. Type of Debridement: Excisional debridement Anesthesia Used: 4% Lidocaine Solution Depth: Down to and including healthy tissue, in the subcutaneous layer Percentage of wound debrided: 100 Instrument Used: 7mm curette Tissue Removed: subcutaneous tissue. Severity: Fat Layer Exposed Amount of bleeding with debridement: Mild Bleeding Controlled with: Pressure Patient tolerated procedure well Assessment/Plan Assessment: 1. Right inguinal and medial thigh hidradenitis. 2. Right vulval hidradenitis involving the mons pubis and genitocrural area. 3. Family history of skin cancer. 4. s/p surgical preparation right inguinal and medial thigh area with excision hidradenitis (437 cm2) and excision hidradenitis right vulval area with partial vulvectomy including deep subcutaneous tissue (mons pubis and genitocrural area up to labia). Plan: Continue Silver dressing changes daily. She has finished her Augmentin for the Anaerobes from surgery. Encourage nutritional supplementation with protein to help the healing process. Renewed her Percocet for pain (40 tabs). Followup 2 weeks.
[2017-09-12 15:06] VITALS: BP 152/96; PULSE 111; RESP 20; TEMP 37.6
--- NOTE | 2017-09-12 20:25 | PCM.WC.PN ---
Type of Wound Date of Service: 10/02/17 Chief Complaint: Nonhealing hidradenitis ulcer right inguinal and vulval area. History of Wound: Surgery 07/11/17 1. Surgical preparation right inguinal and medial thigh area with excision hidradenitis (437 cm2). 2. Excision hidradenitis right vulval area with partial vulvectomy including deep subcutaneous tissue (mons pubis and genitocrural area up to labia). Wound care - Silver. Operative culture - Anaerobic cocci and Propionibacterium granulosum. She initially treated with Doxycycline and Augmentin was added. She has finished them without problem. Encourage nutritional supplementation with protein to help the healing process. Today she denies any fever. Her appetite is good. They have recently removed the patient's ernst. Family states there has been some issues so will put the ernst back in for now. Progress of Wound: Improved. - Physical Exam Vital Signs Temp Pulse Resp BP 99.6 F H 111 H 20 H 152/96 H 09/12/17 15:06 09/12/17 15:06 09/12/17 15:06 09/12/17 15:06 Wound Measurements and Assessment WC - Nurse 1 - General Ulcer Measurement Start: 08/28/17 10:23 Freq: Status: Active Protocol: Activity Type Activity Date Activity User E-Sign Co-Sign Detail Recorded Client Recorded Date Recorded By Document 09/12/17 15:06 DL [id number] 09/12/17 15:12 DL 09/12/17 15:06 Wound Center Nurse 1 [Ulcer Assessment] #2 R Inquinal/Medial Thigh -Current Size (cm) - Length 9 -Current Size (cm) - Width 3.7 -Current Size (cm) - Depth 0.1 -Total Square Cm 33.3 -Photo Taken No -Exudate Amt Medium (34-66%) -Exudate Type Serosanguineous -Wound Margin Distinct, Outline Attached -Granulation Amt Large (67-100%) -Granulation Quality Hyper- granulation [place] Red -Necrosis Amt Small (1-33%) -Necrotic Tissue Type Adherent Slough -Structure Exposed N/A -Texture (Amanda-wound Skin Appearance) Scarring -Moisture (Amanda-wound Skin Appearance No Abnormality ) -Color (Amanda-wound Skin Appearance) No Abnormality -Temperature (Amanda-wound Skin No Abnormality Appearance) (Pt Warm) -Ulcer Cleansing Wound Cleanser -Anesthetic Used 4% Lidocaine Solution - Nurse 2 - General Ulcer CM Notes Start: 08/28/17 10:23 Freq: Status: Active Protocol: Activity Type Activity Date Activity User E-Sign Co-Sign Detail Recorded Client Recorded Date Recorded By Document 09/12/17 15:49 [id number] 09/12/17 15:50 09/12/17 15:49 Wound Center Nurse 2 [Procedure/Treatment] -Time 15:50 -Correct Patient Yes -Correct Side, Site, Position Yes -Correct Procedure Yes -Procedure Performed Yes -Type of Procedure Debridement -Clinical Debridement Subcutaneous -Post Debridement Size (cm) - Length 9 -Post Debridement Size (cm) - Width 3.8 -Post Debridement Size (cm) - Depth 0.1 -Total Square Cm 34.2 -Wound/Ulcer Outcome Not Healed -Ulcer Cleansing Rinsed/ Irrigated with Saline -Foul Odor after Cleansing No -Bioengineered Tissue No -Bleeding Controlled with Pressure -Treatment Response Procedure Tolerated Well [See Physician Procedure note for Specifics] Pain Scale: 0-10 Numeric [Pain] -Is Patient Pain Free? Yes Debridement Note Post-Debridement Measurements/Treatment - Nurse 2 - General Ulcer CM Notes Start: 08/28/17 10:23 Freq: Status: Active Protocol: Activity Type Activity Date Activity User E-Sign Co-Sign Detail Recorded Client Recorded Date Recorded By Document 08/28/17 10:52 [id number] 08/28/17 10:53 Document 09/12/17 15:49 [id number] 09/12/17 15:50 08/28/17 09/12/17 10:52 15:49 Wound Center Nurse 2 #2 R Inquinal/Medial Thigh -Time 10:52 15:50 -Correct Patient Yes Yes -Correct Side, Site, Position Yes Yes -Correct Procedure Yes Yes -Procedure Performed Yes Yes -Type of Procedure Debridement Debridement -Clinical Debridement Subcutaneous Subcutaneous -Post Debridement Size (cm) - Length 13.5 9 -Post Debridement Size (cm) - Width 3.7 3.8 -Post Debridement Size (cm) - Depth 0.2 0.1 -Total Square Cm 49.95 34.2 -Wound/Ulcer Outcome Not Healed Not Healed -Ulcer Cleansing Rinsed/ Rinsed/ Irrigated with Irrigated with Saline Saline -Foul Odor after Cleansing No No -Bioengineered Tissue No No -Bleeding Controlled with Pressure Pressure -Treatment Response Procedure Procedure Tolerated Well Tolerated Well Pain Scale: 0-10 Numeric Is Patient Pain Free? Yes Yes Wound debrided: #2 Right inguinal and vulval area. Laterality: Right Wound Grade/Stage: 2. Type of Debridement: Excisional debridement Anesthesia Used: 4% Lidocaine Solution Depth: Down to and including healthy tissue, in the subcutaneous layer Percentage of wound debrided: 100 Instrument Used: 7mm curette Tissue Removed: subcutaneous tissue. Severity: Fat Layer Exposed Amount of bleeding with debridement: Mild Bleeding Controlled with: Pressure Patient tolerated procedure well Assessment/Plan Assessment: 1. Right inguinal and medial thigh hidradenitis. 2. Right vulval hidradenitis involving the mons pubis and genitocrural area. 3. Family history of skin cancer. 4. s/p surgical preparation right inguinal and medial thigh area with excision hidradenitis (437 cm2) and excision hidradenitis right vulval area with partial vulvectomy including deep subcutaneous tissue (mons pubis and genitocrural area up to labia). Plan: Continue Silver dressing changes daily. She has finished her Augmentin for the Anaerobes from surgery. Encourage nutritional supplementation with protein to help the healing process. Renewed her Percocet for pain (30 tabs). Followup 2 weeks. The ernst will be put back in since there was too much spraying of urine after it was pulled.
== END 2017-09-14 23:59 ==
LOC: WC 14:45
PROVIDERS: Family Provider Family Medicine; PCP Family Medicine; Visit Provider Surgery
DX: L73.2 Hidradenitis suppurativa (principal); Z80.8 Family history of malignant neoplasm of other organs or systems; Z98.890 Other specified postprocedural states
CPT/HCPCS: 11042; 11045

== ENCOUNTER 2017-10-02 08:36 | Outpatient (RCR) | payer MEDICAID, SELFPAY ==
[2017-09-15 00:18] VITALS: BP 152/96; PULSE 111; RESP 20; TEMP 37.6
[2017-10-02 12:21] VITALS: BP 136/80; PULSE 104; RESP 18; TEMP 35.9
--- NOTE | 2017-10-02 21:21 | PCM.WC.PN ---
Type of Wound Date of Service: 10/02/17 Chief Complaint: Nonhealing hidradenitis ulcer right inguinal and vulval area. History of Wound: Surgery 07/11/17 1. Surgical preparation right inguinal and medial thigh area with excision hidradenitis (437 cm2). 2. Excision hidradenitis right vulval area with partial vulvectomy including deep subcutaneous tissue (mons pubis and genitocrural area up to labia). Wound care - Silver. Operative culture - Anaerobic cocci and Propionibacterium granulosum. She initially treated with Doxycycline and Augmentin was added. She has finished them without problem. Encourage nutritional supplementation with protein to help the healing process. Today she denies any fever. Her appetite is good. They have recently removed the patient's ernst. Family states there has been some issues so the ernst was placed back in. Progress of Wound: Improved. - Physical Exam Vital Signs Temp Pulse Resp BP 96.6 F L 104 H 18 136/80 H 10/02/17 12:21 10/02/17 12:21 10/02/17 12:21 10/02/17 12:21 Wound Measurements and Assessment WC - Nurse 1 - General Ulcer Measurement Start: 10/02/17 11:40 Freq: Status: Active Protocol: Activity Type Activity Date Activity User E-Sign Co-Sign Detail Recorded Client Recorded Date Recorded By Document 10/02/17 12:21 [id number] 10/02/17 12:28 10/02/17 12:21 Wound Center Nurse 1 [Ulcer Assessment] #2 R Inquinal/Medial Thigh -Combined with other wound No -Current Size (cm) - Length 9.3 -Current Size (cm) - Width 0.9 -Current Size (cm) - Depth 0.1 -Total Square Cm 8.37 -Date of Last Picture (Recall this 10/02/17 field) -Photo Taken Yes -Epithelialization Small 1-33% -Tunneling No -Undermining/Tunneling No -Circular Undermining No -Exudate Amt Medium (34-66%) -Exudate Type Yellow/Green -Wound Margin Distinct, Outline Attached -Granulation Amt Medium (34-66%) -Granulation Quality [place] -Slough/Fibrin Yes -Necrosis Amt Small (1-33%) -Necrotic Tissue Type Adherent Slough -Structure Exposed None/Limited to Skin Breakdown -Texture (Amanda-wound Skin Appearance) Assessed Scarring -Moisture (Amanda-wound Skin Appearance No Abnormality ) Assessed -Color (Amanda-wound Skin Appearance) No Abnormality Assessed -Temperature (Amanda-wound Skin No Abnormality Appearance) (Pt Warm) -Tenderness on Palpation (Amanda-wound Yes Skin Appearance) -Ulcer Cleansing Rinsed/ Irrigated with Saline -Foul Odor after Cleansing No -Anesthetic Used 4% Lidocaine Solution [Edema Assessment] -Lower Limb Edema Present NA KEVIN - Nurse 2 - General Ulcer CM Notes Start: 10/02/17 11:40 Freq: Status: Active Protocol: Activity Type Activity Date Activity User E-Sign Co-Sign Detail Recorded Client Recorded Date Recorded By Document 10/02/17 12:50 [id number] 10/02/17 12:50 10/02/17 12:50 Wound Center Nurse 2 [Procedure/Treatment] #2 R Inquinal/Medial Thigh -Time 12:50 -Correct Patient Yes -Correct Side, Site, Position Yes -Correct Procedure Yes -Procedure Performed Yes -Type of Procedure Debridement -Clinical Debridement Subcutaneous -Post Debridement Size (cm) - Length 9.3 -Post Debridement Size (cm) - Width 1 -Post Debridement Size (cm) - Depth 0.1 -Total Square Cm 9.3 -Wound/Ulcer Outcome Not Healed -Ulcer Cleansing Rinsed/ Irrigated with Saline -Foul Odor after Cleansing No -Bioengineered Tissue No -Bleeding Controlled with Pressure -Treatment Response Procedure Tolerated Well [See Physician Procedure note for Specifics] Pain Scale: 0-10 Numeric [Pain] -Is Patient Pain Free? Yes Debridement Note Post-Debridement Measurements/Treatment - Nurse 2 - General Ulcer CM Notes Start: 10/02/17 11:40 Freq: Status: Active Protocol: Activity Type Activity Date Activity User E-Sign Co-Sign Detail Recorded Client Recorded Date Recorded By Document 10/02/17 12:50 [id number] 10/02/17 12:50 10/02/17 12:50 Wound Center Nurse 2 #2 R Inquinal/Medial Thigh -Time 12:50 -Correct Patient Yes -Correct Side, Site, Position Yes -Correct Procedure Yes -Procedure Performed Yes -Type of Procedure Debridement -Clinical Debridement Subcutaneous -Post Debridement Size (cm) - Length 9.3 -Post Debridement Size (cm) - Width 1 -Post Debridement Size (cm) - Depth 0.1 -Total Square Cm 9.3 -Wound/Ulcer Outcome Not Healed -Ulcer Cleansing Rinsed/ Irrigated with Saline -Foul Odor after Cleansing No -Bioengineered Tissue No -Bleeding Controlled with Pressure -Treatment Response Procedure Tolerated Well Pain Scale: 0-10 Numeric Is Patient Pain Free? Yes Wound debrided: #2 Right inguinal and vulval area. Laterality: Right Wound Grade/Stage: 2. Type of Debridement: Excisional debridement Anesthesia Used: 4% Lidocaine Solution Depth: Down to and including healthy tissue, in the subcutaneous layer Percentage of wound debrided: 100 Instrument Used: 5mm curette Tissue Removed: subcutaneous tissue. Severity: Fat Layer Exposed Amount of bleeding with debridement: Mild Bleeding Controlled with: Pressure Patient tolerated procedure well Assessment/Plan Assessment: 1. Right inguinal and medial thigh hidradenitis. 2. Right vulval hidradenitis involving the mons pubis and genitocrural area. 3. Family history of skin cancer. 4. s/p surgical preparation right inguinal and medial thigh area with excision hidradenitis (437 cm2) and excision hidradenitis right vulval area with partial vulvectomy including deep subcutaneous tissue (mons pubis and genitocrural area up to labia). Plan: Continue Silver dressing changes daily. She has finished her Augmentin for the Anaerobes from surgery. Encourage nutritional supplementation with protein to help the healing process. Followup 2 weeks. The ernst is back in secondary to spraying of urine. [facility]
--- NOTE | 2017-10-04 00:41 | PN.PCM_ITS ---
Type of Wound Date of Service: 10/02/17 Chief Complaint: Nonhealing hidradenitis ulcer right inguinal and vulval area. History of Wound: Surgery 07/11/17 1. Surgical preparation right inguinal and medial thigh area with excision hidradenitis (437 cm2). 2. Excision hidradenitis right vulval area with partial vulvectomy including deep subcutaneous tissue (mons pubis and genitocrural area up to labia). Wound care - Silver. Operative culture - Anaerobic cocci and Propionibacterium granulosum. She initially treated with Doxycycline and Augmentin was added. She has finished them without problem. Encourage nutritional supplementation with protein to help the healing process. Today she denies any fever. Her appetite is good. They have recently removed the patient's ernst. Family states there has been some issues so the ernst was placed back in. Progress of Wound: Improved. - Physical Exam Vital Signs Temp Pulse Resp BP 96.6 F L 104 H 18 136/80 H 10/02/17 12:21 10/02/17 12:21 10/02/17 12:21 10/02/17 12:21 Wound Measurements and Assessment WC - Nurse 1 - General Ulcer Measurement Start: 10/02/17 11:40 Freq: Status: Active Protocol: Activity Type Activity Date Activity User E-Sign Co-Sign Detail Recorded Client Recorded Date Recorded By Document 10/02/17 12:21 [id number] 10/02/17 12:28 10/02/17 12:21 Wound Center Nurse 1 [Ulcer Assessment] #2 R Inquinal/Medial Thigh -Combined with other wound No -Current Size (cm) - Length 9.3 -Current Size (cm) - Width 0.9 -Current Size (cm) - Depth 0.1 -Total Square Cm 8.37 -Date of Last Picture (Recall this 10/02/17 field) -Photo Taken Yes -Epithelialization Small 1-33% -Tunneling No -Undermining/Tunneling No -Circular Undermining No -Exudate Amt Medium (34-66%) -Exudate Type Yellow/Green -Wound Margin Distinct, Outline Attached -Granulation Amt Medium (34-66%) -Granulation Quality [place] -Slough/Fibrin Yes -Necrosis Amt Small (1-33%) -Necrotic Tissue Type Adherent Slough -Structure Exposed None/Limited to Skin Breakdown -Texture (Amanda-wound Skin Appearance) Assessed Scarring -Moisture (Amanda-wound Skin Appearance No Abnormality ) Assessed -Color (Amanda-wound Skin Appearance) No Abnormality Assessed -Temperature (Amanda-wound Skin No Abnormality Appearance) (Pt Warm) -Tenderness on Palpation (Amanda-wound Yes Skin Appearance) -Ulcer Cleansing Rinsed/ Irrigated with Saline -Foul Odor after Cleansing No -Anesthetic Used 4% Lidocaine Solution [Edema Assessment] -Lower Limb Edema Present NA KEVIN - Nurse 2 - General Ulcer CM Notes Start: 10/02/17 11:40 Freq: Status: Active Protocol: Activity Type Activity Date Activity User E-Sign Co-Sign Detail Recorded Client Recorded Date Recorded By Document 10/02/17 12:50 [id number] 10/02/17 12:50 10/02/17 12:50 Wound Center Nurse 2 [Procedure/Treatment] #2 R Inquinal/Medial Thigh -Time 12:50 -Correct Patient Yes -Correct Side, Site, Position Yes -Correct Procedure Yes -Procedure Performed Yes -Type of Procedure Debridement -Clinical Debridement Subcutaneous -Post Debridement Size (cm) - Length 9.3 -Post Debridement Size (cm) - Width 1 -Post Debridement Size (cm) - Depth 0.1 -Total Square Cm 9.3 -Wound/Ulcer Outcome Not Healed -Ulcer Cleansing Rinsed/ Irrigated with Saline -Foul Odor after Cleansing No -Bioengineered Tissue No -Bleeding Controlled with Pressure -Treatment Response Procedure Tolerated Well [See Physician Procedure note for Specifics] Pain Scale: 0-10 Numeric [Pain] -Is Patient Pain Free? Yes Debridement Note Post-Debridement Measurements/Treatment - Nurse 2 - General Ulcer CM Notes Start: 10/02/17 11:40 Freq: Status: Active Protocol: Activity Type Activity Date Activity User E-Sign Co-Sign Detail Recorded Client Recorded Date Recorded By Document 10/02/17 12:50 [id number] 10/02/17 12:50 10/02/17 12:50 Wound Center Nurse 2 #2 R Inquinal/Medial Thigh -Time 12:50 -Correct Patient Yes -Correct Side, Site, Position Yes -Correct Procedure Yes -Procedure Performed Yes -Type of Procedure Debridement -Clinical Debridement Subcutaneous -Post Debridement Size (cm) - Length 9.3 -Post Debridement Size (cm) - Width 1 -Post Debridement Size (cm) - Depth 0.1 -Total Square Cm 9.3 -Wound/Ulcer Outcome Not Healed -Ulcer Cleansing Rinsed/ Irrigated with Saline -Foul Odor after Cleansing No -Bioengineered Tissue No -Bleeding Controlled with Pressure -Treatment Response Procedure Tolerated Well Pain Scale: 0-10 Numeric Is Patient Pain Free? Yes Wound debrided: #2 Right inguinal and vulval area. Laterality: Right Wound Grade/Stage: 2. Type of Debridement: Excisional debridement Anesthesia Used: 4% Lidocaine Solution Depth: Down to and including healthy tissue, in the subcutaneous layer Percentage of wound debrided: 100 Instrument Used: 5mm curette Tissue Removed: subcutaneous tissue. Severity: Fat Layer Exposed Amount of bleeding with debridement: Mild Bleeding Controlled with: Pressure Patient tolerated procedure well Assessment/Plan Assessment: 1. Right inguinal and medial thigh hidradenitis. 2. Right vulval hidradenitis involving the mons pubis and genitocrural area. 3. Family history of skin cancer. 4. s/p surgical preparation right inguinal and medial thigh area with excision hidradenitis (437 cm2) and excision hidradenitis right vulval area with partial vulvectomy including deep subcutaneous tissue (mons pubis and genitocrural area up to labia). Plan: Continue Silver dressing changes daily. She has finished her Augmentin for the Anaerobes from surgery. Encourage nutritional supplementation with protein to help the healing process. Followup 2 weeks. The ernst is back in secondary to spraying of urine. [facility]
== END 2017-10-14 23:59 ==
LOC: WC 08:36
PROVIDERS: Family Provider Family Medicine; PCP Family Medicine; Visit Provider Surgery
DX: L73.2 Hidradenitis suppurativa (principal); L98.491 Non-pressure chronic ulcer of skin of other sites limited to breakdown of skin
CPT/HCPCS: 11042

== ENCOUNTER 2017-10-23 08:53 | Outpatient (RCR) | payer MEDICAID, SELFPAY ==
[2017-10-15 00:21] VITALS: BP 136/80; PULSE 104; RESP 18; TEMP 35.9
[2017-10-23 10:26] VITALS: BP 148/105; PULSE 97; RESP 16; TEMP 35.9
--- NOTE | 2017-10-23 23:55 | PN.PCM_ITS ---
Type of Wound Date of Service: 10/23/17 Chief Complaint: Nonhealing hidradenitis ulcer right inguinal and vulval area. History of Wound: Surgery 07/11/17 1. Surgical preparation right inguinal and medial thigh area with excision hidradenitis (437 cm2). 2. Excision hidradenitis right vulval area with partial vulvectomy including deep subcutaneous tissue (mons pubis and genitocrural area up to labia). Wound care - Silver. Operative culture - Anaerobic cocci and Propionibacterium granulosum. She initially treated with Doxycycline and Augmentin was added. She has finished them without problem. Encourage nutritional supplementation with protein to help the healing process. Today she denies any fever. Her appetite is good. They have recently removed the patient's ernst. Family states there has been some issues so the ernst was placed back in. Progress of Wound: Improved. - Physical Exam Vital Signs Temp Pulse Resp BP 96.6 F L 97 16 148/105 H 10/23/17 10:26 10/23/17 10:26 10/23/17 10:26 10/23/17 10:26 Wound Measurements and Assessment WC - Nurse 1 - General Ulcer Measurement Start: 10/23/17 10:25 Freq: Status: Active Protocol: Activity Type Activity Date Activity User E-Sign Co-Sign Detail Recorded Client Recorded Date Recorded By Document 10/23/17 10:26 [id number] 10/23/17 10:36 10/23/17 10:26 Wound Center Nurse 1 [Ulcer Assessment] #2 R Inquinal/Medial Thigh -Combined with other wound No -Current Size (cm) - Length 2.0 -Current Size (cm) - Width 0.2 -Current Size (cm) - Depth 0.1 -Total Square Cm 0.40 -Photo Taken No -Epithelialization Medium 34-66% -Tunneling No -Undermining/Tunneling No -Circular Undermining No -Exudate Amt None Present (0 %) -Wound Margin Distinct, Outline Attached -Granulation Amt Medium (34-66%) -Granulation Quality [place] -Slough/Fibrin No -Necrosis Amt None Present (0 %) -Structure Exposed None/Limited to Skin Breakdown -Texture (Amanda-wound Skin Appearance) Assessed Scarring -Moisture (Amanda-wound Skin Appearance No Abnormality ) Assessed -Color (Amanda-wound Skin Appearance) No Abnormality Assessed -Temperature (Amanda-wound Skin No Abnormality Appearance) (Pt Warm) -Tenderness on Palpation (Amanda-wound No Skin Appearance) -Ulcer Cleansing Rinsed/ Irrigated with Saline -Foul Odor after Cleansing No -Anesthetic Used 5% Lidocaine Gel [Edema Assessment] -Lower Limb Edema Present NA - Nurse 2 - General Ulcer CM Notes Start: 10/23/17 10:25 Freq: Status: Active Protocol: Activity Type Activity Date Activity User E-Sign Co-Sign Detail Recorded Client Recorded Date Recorded By Document 10/23/17 10:47 [id number] 10/23/17 10:48 [email or web address] 10/23/17 10:47 Wound Center Nurse 2 [Procedure/Treatment] #2 R Inquinal/Medial Thigh -Time 10:48 -Correct Patient Yes -Correct Side, Site, Position Yes -Correct Procedure Yes -Procedure Performed Yes -Type of Procedure Debridement -Clinical Debridement Subcutaneous -Post Debridement Size (cm) - Length 2.1 -Post Debridement Size (cm) - Width 0.3 -Post Debridement Size (cm) - Depth 0.1 -Total Square Cm 0.63 -Wound/Ulcer Outcome Not Healed -Ulcer Cleansing Rinsed/ Irrigated with Saline -Foul Odor after Cleansing No -Bioengineered Tissue No -Bleeding Controlled with Pressure -Treatment Response Procedure Tolerated Well [See Physician Procedure note for Specifics] Pain Scale: 0-10 Numeric [Pain] -Is Patient Pain Free? Yes Debridement Note Post-Debridement Measurements/Treatment - Nurse 2 - General Ulcer CM Notes Start: 10/23/17 10:25 Freq: Status: Active Protocol: Activity Type Activity Date Activity User E-Sign Co-Sign Detail Recorded Client Recorded Date Recorded By Document 10/23/17 10:47 JF [id number] 10/23/17 10:48 10/23/17 10:47 Wound Center Nurse 2 #2 R Inquinal/Medial Thigh -Time 10:48 -Correct Patient Yes -Correct Side, Site, Position Yes -Correct Procedure Yes -Procedure Performed Yes -Type of Procedure Debridement -Clinical Debridement Subcutaneous -Post Debridement Size (cm) - Length 2.1 -Post Debridement Size (cm) - Width 0.3 -Post Debridement Size (cm) - Depth 0.1 -Total Square Cm 0.63 -Wound/Ulcer Outcome Not Healed -Ulcer Cleansing Rinsed/ Irrigated with Saline -Foul Odor after Cleansing No -Bioengineered Tissue No -Bleeding Controlled with Pressure -Treatment Response Procedure Tolerated Well Pain Scale: 0-10 Numeric Is Patient Pain Free? Yes Wound debrided: #2 Right inguinal and vulval area. Laterality: Right Wound Grade/Stage: 2. Type of Debridement: Excisional debridement Anesthesia Used: 4% Lidocaine Solution Depth: Down to and including healthy tissue, in the subcutaneous layer Percentage of wound debrided: 100 Instrument Used: 5mm curette Tissue Removed: subcutaneous tissue. Severity: Fat Layer Exposed Amount of bleeding with debridement: Mild Bleeding Controlled with: Pressure Patient tolerated procedure well Assessment/Plan Assessment: 1. Right inguinal and medial thigh hidradenitis. 2. Right vulval hidradenitis involving the mons pubis and genitocrural area. 3. Family history of skin cancer. 4. s/p surgical preparation right inguinal and medial thigh area with excision hidradenitis (437 cm2) and excision hidradenitis right vulval area with partial vulvectomy including deep subcutaneous tissue (mons pubis and genitocrural area up to labia). Plan: Continue Silver dressing changes daily. She has finished her Augmentin for the Anaerobes from surgery. Encourage nutritional supplementation with protein to help the healing process. Followup 2 weeks. Recommended to the family to shave the pubic hair during the healing process since it can get in the way of healing.
[2017-11-06 09:50] VITALS: BP 144/81; PULSE 91; RESP 18; TEMP 36.2
== END 2017-11-14 23:59 ==
LOC: WC 08:53
PROVIDERS: Family Provider Family Medicine; PCP Family Medicine; Visit Provider Surgery
DX: L73.2 Hidradenitis suppurativa (principal); Z85.828 Personal history of other malignant neoplasm of skin; E11.9 Type 2 diabetes mellitus without complications; N39.0 Urinary tract infection, site not specified; T83.511A Infection and inflammatory reaction due to indwelling urethral catheter, initial encounter
CPT/HCPCS: 11042; 36415; 83036; 87086; 87088; 87186

== ENCOUNTER → 2017-10-23 11:25 | Outpatient (CLI) | payer MEDICAID, SELFPAY ==
[2017-10-23 12:55] LABS: Hemoglobin A1c 7.1 % (4.2-6.3)
== END ==
PROVIDERS: Family Provider Family Medicine; PCP Family Medicine; Visit Provider Family Medicine
DX: E11.9 Type 2 diabetes mellitus without complications (principal); N39.0 Urinary tract infection, site not specified; T83.511A Infection and inflammatory reaction due to indwelling urethral catheter, initial encounter
CPT/HCPCS: 36415; 83036; 87086; 87088

== ENCOUNTER 2017-12-04 07:43 | Outpatient (RCR) | payer MEDICAID, SELFPAY ==
[2017-11-15 00:26] VITALS: BP 144/81; PULSE 91; RESP 18; TEMP 36.2
[2017-12-04 08:01] VITALS: BP 152/100; PULSE 97; RESP 18; TEMP 36.1
--- NOTE | 2017-12-04 22:32 | PCM.WC.PN ---
Type of Wound Date of Service: 12/04/17 Chief Complaint: Nonhealing hidradenitis ulcer right inguinal and vulval area. History of Wound: Surgery 07/11/17 1. Surgical preparation right inguinal and medial thigh area with excision hidradenitis (437 cm2). 2. Excision hidradenitis right vulval area with partial vulvectomy including deep subcutaneous tissue (mons pubis and genitocrural area up to labia). Wound care - Silver. Operative culture - Anaerobic cocci and Propionibacterium granulosum. She initially treated with Doxycycline and Augmentin was added. She has finished them without problem. Encourage nutritional supplementation with protein to help the healing process. Today she denies any fever. Her appetite is good. Since the ernst catheter has been removed, she has had no problem with voiding. She complains of an early flare up in left inguinal and perineal area. She denies any drainage. Progress of Wound: Healed. - Physical Exam Vital Signs Temp Pulse Resp BP 97 F L 97 18 152/100 H 12/04/17 08:01 12/04/17 08:01 12/04/17 08:01 12/04/17 08:01 General: Alert, Oriented x3 HEENT: PERRLA, EOMI Oral: Moist Mucosa Neck: Supple Lungs: Clear to auscultation Cardiovascular: Regular rate, Regular Rhythm, Normal S1 Abdomen: Soft, Non-Distended Skin: Ulcer/ Wound - ulcer right inguinal and vulval area is healed. Some nodules are seen on the left inguinal and perineal area. Nontender. No redness. No fluctuance. Will observe at this time. Wound Measurements and Assessment WC - Nurse 1 - General Ulcer Measurement Start: 12/04/17 08:01 Freq: Status: Active Protocol: Activity Type Activity Date Activity User E-Sign Co-Sign Detail Recorded Client Recorded Date Recorded By Document 12/04/17 08:01 [email or web address] [id number] 12/04/17 08:04 [email or web address] 12/04/17 08:01 Wound Center Nurse 1 [Ulcer Assessment] #2 R Inquinal/Medial Thigh -Combined with other wound No -Current Size (cm) - Length 0 -Current Size (cm) - Width 0 -Current Size (cm) - Depth 0 -Total Square Cm 0 -Photo Taken Yes -Epithelialization Large 67-100% [Edema Assessment] -Lower Limb Edema Present NA WC - Nurse 2 - General Ulcer CM Notes Start: 12/04/17 08:01 Freq: Status: Active Protocol: Activity Type Activity Date Activity User E-Sign Co-Sign Detail Recorded Client Recorded Date Recorded By Document 12/04/17 08:13 [email or web address] [id number] 12/04/17 08:14 PRISCILA 12/04/17 08:13 Pain Scale: 0-10 Numeric [Pain] -Is Patient Pain Free? Yes Neurological: Cranial nerves II-XII grossly intact Psych/Mental Status: Normal Affect, Appropriate Debridement Note Post-Debridement Measurements/Treatment WC - Nurse 2 - General Ulcer CM Notes Start: 12/04/17 08:01 Freq: Status: Active Protocol: Activity Type Activity Date Activity User E-Sign Co-Sign Detail Recorded Client Recorded Date Recorded By Document 12/04/17 08:13 [email or web address] [id number] 12/04/17 08:14 PRISCILA 12/04/17 08:13 Pain Scale: 0-10 Numeric Is Patient Pain Free? Yes Wound debrided: #2 Right inguinal area. Laterality: Right Wound Grade/Stage: 2. No debridement was completed today - the ulcer has healed. Assessment/Plan Assessment: 1. Ulcer right inguinal and vulval area, healed. 2. Right inguinal and medial thigh hidradenitis. 3. Right vulval hidradenitis involving the mons pubis and genitocrural area. 4. Family history of skin cancer. 5. s/p surgical preparation right inguinal and medial thigh area with excision hidradenitis (437 cm2) and excision hidradenitis right vulval area with partial vulvectomy including deep subcutaneous tissue (mons pubis and genitocrural area up to labia). 6. Minor flare up left inguinal and perineal hidradenitis, stable. Plan: The ulcer has healed. She will keep the area dry by rubbing the moisture off during the day. Massage the scar with skin lotion daily to help soften up the scar. She is having minor flare ups of hidradenitis in the left inguinal and perineal area. Will write a script for Doxycycline that she can use for flare ups. Encourage nutritional supplementation with protein to help the healing process. Followup on an as needed basis.
== END 2017-12-15 23:59 ==
LOC: WC 07:43
PROVIDERS: Family Provider Family Medicine; PCP Family Medicine; Visit Provider Surgery
DX: L73.2 Hidradenitis suppurativa (principal); Z80.8 Family history of malignant neoplasm of other organs or systems
CPT/HCPCS: 99212; G0463

== ENCOUNTER → 2017-12-29 13:03 | Outpatient (CLI) | payer MEDICAID, SELFPAY | PROVIDERS: Family Provider Family Medicine; PCP Family Medicine; Visit Provider Surgery | DX: L98.492 Non-pressure chronic ulcer of skin of other sites with fat layer exposed (principal); L73.2 Hidradenitis suppurativa | CPT/HCPCS: 87070; 87075; 87205 ==

== ENCOUNTER → 2019-10-10 13:30 | Outpatient (CLI) | payer MEDICAID, SELFPAY ==
[2019-10-10 13:11] VITALS: BMI 43.8
[2019-10-10 15:51] LABS: ALB/GLOB Ratio 0.7 RATIO (0.9-2.4); AST(SGOT) 19 U/L (15-37); Alanine Aminotransfer ALT/SGPT 36 U/L (13-56); Albumin, Serum 3.2 g/dL (3.2-5.0); Alkaline Phosphatase 65 U/L (45-117); Anion Gap 7 (5-15); BUN 10 mg/dL (7-18); BUN/Creat Ratio 12.7 RATIO (10-20); Calcium,Total 8.9 mg/dL (8.5-10.1); Chloride 104 mmol/L (98-107); Cholesterol 195 mg/dL (200); Creatinine, Serum 0.79 mg/dL (0.55-1.02); EST Glomerular Filtration Rate 89 mL/min (>60); Est Glom Filt Rate - Afr Amer 108 mL/min (>60); Globulin 4.3 g/dL (2.2-4.2); Glucose 228 mg/dL (74-106); High Density Lipoprotein 52 mg/dL; Potassium 4.4 mmol/L (3.5-5.1); Protein, Total 7.5 g/dL (6.4-8.2); Sodium Level 137 mmol/L (136-145); Triglycerides 154 mg/dL; Very Low Density Lipoprotein 31 mg/dL (5-40)
[2019-10-10 16:51] LABS: Microalbumin,Random Urine 11.5 mg/L (NO RANGE EST.); Microalbumin:Creatinine Ratio 11.9 mg/g CRE (<30 mg/g CRE)
== END ==
PROVIDERS: PCP Family Medicine; Referring Provider Family Medicine; Visit Provider Family Medicine
DX: E11.9 Type 2 diabetes mellitus without complications (principal)
CPT/HCPCS: 36415; 80053; 80061; 82043; 82570

== ENCOUNTER → 2021-01-05 11:20 | Outpatient (CLI) | payer MEDICAID, SELFPAY ==
[2021-01-05 12:18] LABS: Absolute Lymphocyte Count 1.98 X10^3/uL (0.83-4.51); Absolute Neutrophil Count 4.9 X10^3/uL (2.0-7.7); Basophil# 0.06 X10^3/uL; Basophil% 0.8 % (0-1); Eosinophil# 0.11 X10^3/uL; Eosinophils% 1.5 % (0-5); Hematocrit 41.2 % (37-47); Lymphocyte # 1.98 X10^3/ul (0.83-4.51); Lymphocyte % 26.2 % (19-41); Mean Corp Hgb Conc 31.6 g/dL (32-36); Mean Corpuscular Hgb 29.3 pg (27.0-32.0); Mean Corpuscular Volume 92.8 fL (81-99); Mean Platelet Vol. 10.3 fl (6.2-12.0); Monocyte# 0.47 X10^3/uL; Monocyte% 6.2 % (0-10); NRBC Flagged by Analyzer 0 % (0-5); Neutrophil # 4.92 X10^3/uL (2.7-7.7); Neutrophil % 64.9 % (47-70); Platelet Count 354 K/mm3 (150-450); RBC Distribution Width CV 12.9 % (11.6-14.6); Red Blood Count 4.44 M/mm3 (4.2-5.4); White Blood Count 7.6 K/mm3 (4.4-11.0)
[2021-01-05 12:48] LABS: ALB/GLOB Ratio 0.6 RATIO (0.9-2.4); AST(SGOT) 12 U/L (15-37); Alanine Aminotransfer ALT/SGPT 34 U/L (13-56); Albumin, Serum 2.9 g/dL (3.2-5.0); Alkaline Phosphatase 66 U/L (45-117); Anion Gap 6 (5-15); BUN 7 mg/dL (7-18); BUN/Creat Ratio 10.1 RATIO (10-20); Calcium,Total 8.7 mg/dL (8.5-10.1); Chloride 107 mmol/L (98-107); Cholesterol 207 mg/dL (200); Creatinine, Serum 0.69 mg/dL (0.55-1.02); EST Glomerular Filtration Rate 103 mL/min (>60); Est Glom Filt Rate - Afr Amer 125 mL/min (>60); Globulin 4.5 g/dL (2.2-4.2); Glucose 147 mg/dL (74-106); High Density Lipoprotein 50 mg/dL; Potassium 3.9 mmol/L (3.5-5.1); Protein, Total 7.4 g/dL (6.4-8.2); Sodium Level 139 mmol/L (136-145); Thyroid Stim Hormone (TSH) 1.68 uIU/mL (0.358-3.74); Triglycerides 132 mg/dL; Very Low Density Lipoprotein 26 mg/dL (5-40)
[2021-01-05 15:53] LABS: Microalbumin,Random Urine 10.7 mg/L (NO RANGE EST.); Microalbumin:Creatinine Ratio 7.6 mg/g CRE (<30 mg/g CRE)
== END ==
PROVIDERS: PCP Family Medicine; Referring Provider Nurse Practitioner Family; Visit Provider Nurse Practitioner Family
DX: E11.65 Type 2 diabetes mellitus with hyperglycemia (principal); E66.9 Obesity, unspecified; F41.9 Anxiety disorder, unspecified
CPT/HCPCS: 36415; 80053; 80061; 82043; 82570; 84443; 85025

== ENCOUNTER → 2022-02-01 | Outpatient (CLI) | payer MEDICAID, SELFPAY ==
[2022-02-01 12:32] LABS: Absolute Lymphocyte Count 1.96 X10^3/uL (0.83-4.51); Basophil# 0.06 X10^3/uL; Basophil% 0.7 % (0-1); Eosinophil# 0.13 X10^3/uL; Eosinophils% 1.5 % (0-5); Hematocrit 41.8 % (37-47); Hemoglobin 13.4 g/dL (12.0-15.0); Lymphocyte # 1.96 X10^3/ul (0.83-4.51); Lymphocyte % 22.4 % (19-41); Mean Corp Hgb Conc 32.1 g/dL (32-36); Mean Corpuscular Hgb 29.5 pg (27.0-32.0); Mean Corpuscular Volume 92.1 fL (81-99); Mean Platelet Vol. 10.1 fl (6.2-12.0); Monocyte# 0.53 X10^3/uL; Monocyte% 6.1 % (0-10); NRBC Flagged by Analyzer 0 % (0-5); Neutrophil # 6.02 X10^3/uL (2.7-7.7); Neutrophil % 68.7 % (47-70); Platelet Count 347 K/mm3 (150-450); RBC Distribution Width CV 12.7 % (11.6-14.6); RBC Distribution Width SD 42.6 fl (35.1-43.9); Red Blood Count 4.54 M/mm3 (4.2-5.4); White Blood Count 8.8 K/mm3 (4.4-11.0)
[2022-02-01 12:56] LABS: ALB/GLOB Ratio 0.7 RATIO (0.9-2.4); AST(SGOT) 16 U/L (15-37); Alanine Aminotransfer ALT/SGPT 38 U/L (13-56); Albumin, Serum 3.3 g/dL (3.2-5.0); Alkaline Phosphatase 75 U/L (45-117); Anion Gap 6 (5-15); BUN 11 mg/dL (7-18); BUN/Creat Ratio 12.1 RATIO (10-20); Calcium,Total 8.9 mg/dL (8.5-10.1); Chloride 107 mmol/L (98-107); Cholesterol 188 mg/dL (200); Creatinine, Serum 0.91 mg/dL (0.55-1.02); EST Glomerular Filtration Rate 75 mL/min (>60); Est Glom Filt Rate - Afr Amer 90 mL/min (>60); Globulin 4.5 g/dL (2.2-4.2); Glucose 225 mg/dL (74-106); High Density Lipoprotein 56 mg/dL; Potassium 4.2 mmol/L (3.5-5.1); Protein, Total 7.8 g/dL (6.4-8.2); Sodium Level 139 mmol/L (136-145); Thyroid Stim Hormone (TSH) 2.24 uIU/mL (0.358-3.74); Triglycerides 108 mg/dL; Very Low Density Lipoprotein 22 mg/dL (5-40)
== END | disposition home or self-care (01) ==
LOC: BIMLAB 09:54
PROVIDERS: PCP Family Medicine; Referring Provider Physician Assistant; Visit Provider Physician Assistant
DX: Z00.00 Encounter for general adult medical examination without abnormal findings (principal); E11.65 Type 2 diabetes mellitus with hyperglycemia; E66.9 Obesity, unspecified
CPT/HCPCS: 36415; 80053; 80061; 84443; 85025

== ENCOUNTER → 2022-09-23 | Outpatient (CLI) | payer MEDICAID, SELFPAY ==
[2022-09-27 14:09] LABS: HPV APTIMA, High Risk Negative (Negative)
== END | disposition home or self-care (01) ==
LOC: LABSPEC 12:33
PROVIDERS: PCP Family Medicine; Referring Provider Obstetrics & Gynecology; Visit Provider Obstetrics & Gynecology
DX: Z53.20 Procedure and treatment not carried out because of patient's decision for unspecified reasons (principal)
CPT/HCPCS: 87624; 88175; G0145

== ENCOUNTER → 2023-01-25 | Outpatient (CLI) | payer MEDICAID, SELFPAY ==
[2023-01-25 15:53] LABS: ALB/GLOB Ratio 0.9 RATIO (0.9-2.4); AST(SGOT) 11 U/L (15-37); Alanine Aminotransfer ALT/SGPT 33 U/L (13-56); Albumin, Serum 3.5 g/dL (3.2-5.0); Alkaline Phosphatase 87 U/L (45-117); Anion Gap 7 (5-15); BUN 10 mg/dL (7-18); BUN/Creat Ratio 12.4 RATIO (10-20); Calcium,Total 9.1 mg/dL (8.5-10.1); Chloride 106 mmol/L (98-107); Cholesterol 195 mg/dL (200); EST Glomerular Filtration Rate 86 mL/min (>60); Est Glom Filt Rate - Afr Amer 104 mL/min (>60); Globulin 4.1 g/dL (2.2-4.2); Glucose 182 mg/dL (74-106); High Density Lipoprotein 48 mg/dL; Potassium 4.1 mmol/L (3.5-5.1); Protein, Total 7.6 g/dL (6.4-8.2); Sodium Level 140 mmol/L (136-145); Triglycerides 137 mg/dL; Very Low Density Lipoprotein 27 mg/dL (5-40)
[2023-01-25 16:20] LABS: Microalbumin,Random Urine 22.8 mg/L (NO RANGE EST.); Microalbumin:Creatinine Ratio 7.8 mg/g CRE (<30 mg/g CRE)
== END | disposition home or self-care (01) ==
LOC: BIMLAB 14:17
PROVIDERS: PCP Family Medicine; Visit Provider Family Medicine
DX: E11.69 Type 2 diabetes mellitus with other specified complication (principal); E66.9 Obesity, unspecified
CPT/HCPCS: 36415; 80053; 80061; 82043; 82570

== ENCOUNTER → 2025-03-25 | Outpatient (CLI) | payer MEDICARE, MEDICAID, SELFPAY ==
[2025-03-25 13:10] LABS: AST(SGOT) 20 U/L (<=31); Alanine Aminotransfer ALT/SGPT 26 U/L (<=34); Albumin, Serum 4.3 g/dL (3.5-5.0); Alkaline Phosphatase 71 U/L (35-104); Anion Gap 17 (5-15); BUN 23 mg/dL (4-19); BUN/Creat Ratio 31.2 RATIO (10-20); Calcium,Total 9.6 mg/dL (7.6-11.0); Carbon Dioxide 19.2 mmol/L (21.0-32.0); Chloride 102 mmol/L (98-108); Cholesterol 217 mg/dL (<=200); Globulin 3.5 g/dL (2.2-4.2); Glucose 259 mg/dL (70-99); Low Density Lipoprotein Calc. 125 mg/dL; Potassium 4.2 mmol/L (3.3-5.1); Triglycerides 227 mg/dL; Very Low Density Lipoprotein 45 mg/dL (5-40); cholesterol:hdl ratio screen 4.17
[2025-03-25 13:14] LABS: Creatinine, Urine (random) 60.00 mg/dL (28.00-217.00); Microalbumin,Random Urine 73.9 mg/L (<20 mg/L)
== END | disposition home or self-care (01) ==
LOC: LAB 12:03
PROVIDERS: PCP Family Medicine; Referring Provider Family Medicine; Visit Provider Family Medicine
DX: E11.65 Type 2 diabetes mellitus with hyperglycemia (principal); E66.9 Obesity, unspecified
CPT/HCPCS: 36415; 80053; 80061; 82043; 82570